=== PATIENT | female | born 1975 | race Caucasian/White ===

== ENCOUNTER 2017-11-25 11:11 | Emergency (ER) | END 2017-11-25 14:18 | disposition left against medical advice (07) | DX: R56.9 Unspecified convulsions (principal); F13.239 Sedative, hypnotic or anxiolytic dependence with withdrawal, unspecified; F17.200 Nicotine dependence, unspecified, uncomplicated | CPT/HCPCS: 70450; 80053; 80307; 85025; 93005; 96374; 99285; J2060; J7030 ==